=== PATIENT | female | born 1945 | race Caucasian/White ===

== ENCOUNTER 2021-05-23 17:55 | Inpatient (IN) | payer MEDICARE, OTHER ==
[~2021-05-23] VITALS: Ht 167.6 cm; Wt 93.0 kg
[2021-05-23 18:34] LABS: COVID AG,FIA SOURCE NASOPHARYNGEAL
[2021-05-23 18:36] LABS: BASOPHILS % (AUTO) 0.1 % (0.0-2.0); HEMATOCRIT 24.8 % (36-46); HEMOGLOBIN 7.9 g/dL (12.0-16.0); LYMPHOCYTES # (AUTO) 0.7 K/uL (1.0-4.8); LYMPHOCYTES % (AUTO) 4.6 % (22.0-44.0); MEAN CORPUSCULAR HEMOGLOBIN 28.1 pg (26.0-34.0); MEAN CORPUSCULAR HGB CONC 31.9 G/dL (31.0-37.0); MEAN CORPUSCULAR VOLUME 88 fL (80-100); MONOCYTES # (AUTO) 0.7 K/uL (0.1-1.0); MONOCYTES % (AUTO) 4.6 % (2.0-9.0); NEUTROPHILS # (AUTO) 13.9 K/uL (1.8-7.7); PLATELET COUNT (AUTO) 283 K/uL (150-450); RED BLOOD CELL COUNT(AUTO) 2.81 MIL/uL (4.00-5.20); RED CELL DISTRIBUTION WIDTH 15.1 % (11.5-14.5)
[2021-05-23 18:39] LABS: NEUTROPHILS % (AUTO) 89.7 % (40.0-70.0)
[2021-05-23 18:44] LABS: CALCIUM, TOTAL 9.4 mg/dL (8.8-10.5); CREATININE 1.93 mg/dL (0.60-1.30); POTASSIUM 3.9 mmol/L (3.5-5.1)
[2021-05-23 18:49] LABS: ALBUMIN 2.7 g/dL (3.4-5.0); BILIRUBIN,TOTAL 0.9 mg/dL (0.1-1.0); TOTAL PROTEIN, SERUM 6.7 g/dL (6.4-8.2)
[2021-05-23 19:04] LABS: INFLUENZA TYPE A NEGATIVE FOR TYPE A (NEGATIVE); INFLUENZA TYPE B NEGATIVE FOR TYPE B (NEGATIVE)
[2021-05-23] MEDS ORDERED: DEXAMETHASONE SOD PHOS 4 MG/ML VIAL IVP ONE (19:15)
[2021-05-23] MEDS ORDERED: OXYC10TA48 PO (19:25)
[2021-05-23] MEDS ORDERED: CYCL10TA17 PO (19:25)
[2021-05-23] MEDS ORDERED: BISA10SU61 PR (19:27)
[2021-05-23] MEDS ORDERED: FAMO10TA39 PO (19:28)
[2021-05-23] MEDS ORDERED: FLUO20CA36 PO (19:29)
[2021-05-23] MEDS ORDERED: FLUT16H NASAL (19:30)
[2021-05-23] MEDS ORDERED: PIPERACILLIN/TAZO 3.375 GM/D5W 50 ML IV ONE (19:30)
[2021-05-23] MEDS ORDERED: FURO-151 PO (19:31)
[2021-05-23] MEDS ORDERED: GABA-1181 PO (19:32)
[2021-05-23] MEDS ORDERED: HALO.5 PO (19:33)
[2021-05-23] MEDS ORDERED: HEPA500018 SQ (19:34)
[2021-05-23] MEDS ORDERED: IPRA3AMP23 NEB (19:35)
[2021-05-23] MEDS ORDERED: LIDO1ADH48 TP (19:35)
[2021-05-23] MEDS ORDERED: LOSA25TA21 PO (19:36)
[2021-05-23] MEDS ORDERED: MELA5TAB21 PO (19:37)
[2021-05-23] MEDS ORDERED: MOME13HF2 IH (19:39)
[2021-05-23] MEDS ORDERED: NYST15PO3 TP (19:41)
[2021-05-23] MEDS ORDERED: MORPHINE SULFATE 4 MG/ML SYRINGE IVP ONE (19:45)
[2021-05-23] MEDS ORDERED: VANCOMYCIN HCL 1 GM/D5% WATER 200 ML IV ONE (20:00)
[2021-05-23] MEDS ORDERED: ONDANSETRON HCL 4 MG/2 ML VIAL IVP PRN (20:00)
[2021-05-23 20:17] LABS: RETICULOCYTE % (AUTO) 4.6 % (0.5-2.3)
[2021-05-23 20:30] LABS: HEMOGLOBIN A1C 5.1 % (3.8-5.6)
[2021-05-23] MEDS: HALOPERIDOL 1 MG TABLET PO SCH (20:32)
[2021-05-23 20:55] LABS: % IRON SATURATION 6.3 % (22-44)
[2021-05-23] MEDS ORDERED: LORazepam 2 MG/ML VIAL IVP ONE (21:00)
[2021-05-23] MEDS: IPRATROPIUM BROMIDE 0.5 MG/2.5 ML NEB SOLUTION NEB SCH (21:00)
[2021-05-23] MEDS: ALBUTEROL SULFATE 2.5 MG/0.5 ML NEB SOLUTION NEB SCH (21:00)
[2021-05-23] MEDS: CefTRIAXone 1 GM/DEXTROSE 50 ML IV SCH (22:00)
[2021-05-24] VITALS (13 sets, daily range): BP systolic 102–167; BP diastolic 45–87
[2021-05-24] MEDS ORDERED: HEPARIN SODIUM,PORCINE 5,000 UNITS/ML VIAL SQ SCH
[2021-05-24 00:54] LABS: APPEARANCE,URINE CLOUDY (CLEAR); BILIRUBIN,URINE NEGATIVE (NEGATIVE); GLUCOSE, URINE (UA) NEGATIVE (NEGATIVE); KETONES,URINE NEGATIVE (NEGATIVE); LEUKOCYTE ESTERASE ,URINE LARGE (NEGATIVE); NITRATE,URINE POSITIVE (NEGATIVE); OCCULT BLOOD,URINE SMALL (NEGATIVE); PH,URINE 5.5 (5.0-8.0); PROTEIN,URINE TRACE (NEGATIVE); UROBILINOGEN,URINE 0.2 mg/dL (<=1.0)
[2021-05-24 01:39] LABS: SODIUM,URINE RANDOM 7 mmol/l (20-110)
[2021-05-24 01:52] LABS: BACTERIA,URINE Few /HPF (None Seen)
[2021-05-24 01:53] LABS: RBC,URINE 0-2 /HPF (0-2); SQUAMOUS EPITHELIAL CELL,UR Rare /LPF (None Seen)
[2021-05-24] MEDS: ACETAMINOPHEN 325 MG TABLET PO PRN ×2 (03:04→18:57)
[2021-05-24 05:03] LABS: BASOPHILS % (AUTO) 0.4 % (0.0-2.0); EOSINOPHILS % (AUTO) 0.1 % (1.0-6.0); LYMPHOCYTES # (AUTO) 0.5 K/uL (1.0-4.8); LYMPHOCYTES % (AUTO) 2.8 % (22.0-44.0); MEAN CORPUSCULAR HEMOGLOBIN 28.4 pg (26.0-34.0); MEAN CORPUSCULAR HGB CONC 31.9 G/dL (31.0-37.0); MEAN CORPUSCULAR VOLUME 89 fL (80-100); MONOCYTES # (AUTO) 0.6 K/uL (0.1-1.0); MONOCYTES % (AUTO) 3.3 % (2.0-9.0); NEUTROPHILS # (AUTO) 15.4 K/uL (1.8-7.7); RED BLOOD CELL COUNT(AUTO) 2.36 MIL/uL (4.00-5.20); RED CELL DISTRIBUTION WIDTH 15.3 % (11.5-14.5)
[2021-05-24 05:05] LABS: CREATININE 1.86 mg/dL (0.60-1.30); HEMOGLOBIN 6.7 g/dL (12.0-16.0); MAGNESIUM 2.9 mg/dL (1.80-2.40); NEUTROPHILS % (AUTO) 93.4 % (40.0-70.0); POTASSIUM 4.7 mmol/L (3.5-5.1)
[2021-05-24] MEDS ORDERED: PANTOPRAZOLE SODIUM 40 MG/VIAL IVP ONE (05:15)
[2021-05-24 05:27] LABS: PLATELET COUNT (AUTO) 207 K/uL (150-450)
[2021-05-24] MEDS: HALOPERIDOL 1 MG TABLET PO SCH ×3 (08:50→22:29)
[2021-05-24] MEDS: ALBUTEROL SULFATE 2.5 MG/0.5 ML NEB SOLUTION NEB SCH ×4 (09:18→20:48)
[2021-05-24] MEDS: IPRATROPIUM BROMIDE 0.5 MG/2.5 ML NEB SOLUTION NEB SCH ×4 (09:18→20:48)
[2021-05-24] MEDS ORDERED: FAMO20 PO (11:00)
[2021-05-24 11:52] LABS: C-REACTIVE PROTEIN QUANT 23.94 mg/dL (0.00-0.30)
[2021-05-24] MEDS: FLUTICASONE PROPIONATE 50 MCG/SPRAY 16 GM NASAL SPRAY NASAL SCH ×2 (12:49→22:28)
[2021-05-24] MEDS: NYSTATIN 15 GM POWDER BOTTLE TP SCH (12:50)
[2021-05-24] MEDS: GABAPENTIN 300 MG CAPSULE PO SCH (12:50)
[2021-05-24] MEDS: FLUoxetine HCL 20 MG CAPSULE PO SCH (12:51)
[2021-05-24] MEDS: PANTOPRAZOLE SODIUM 40 MG DR TABLET PO SCH ×3 (12:51→22:29)
[2021-05-24] MEDS ORDERED: INSULIN LISPRO 100 UNITS/ML SQ PRN (14:00)
[2021-05-24] MEDS ORDERED: DEXTROSE 50%-WATER 25 GM/50 ML SYRINGE IVP PRN (14:00)
[2021-05-24] MEDS ORDERED: REMDESIVIR 200 MG in SODIUM CHLORIDE 0.9% 250 ML IV ONE (14:00)
[2021-05-24] MEDS ORDERED: SODIUM CHLORIDE 0.9% 250 ML IV ONE (15:14)
[2021-05-24] MEDS: DEXAMETHASONE SOD PHOS 4 MG/ML VIAL IVP SCH (15:23)
[2021-05-24] MEDS ORDERED: MOMETASONE IH SCH (21:00)
[2021-05-24] MEDS ORDERED: FORMOTEROL IH SCH (21:00)
[2021-05-25] MEDS: CefTRIAXone 1 GM/DEXTROSE 50 ML IV SCH ×2 (00:04→23:53)
[2021-05-25 00:18] VITALS: BP 139/70
[2021-05-25 00:24] LABS: GLUCOMETER DEV NAME(LOC) 5S.2B; GLUCOSE,POINT OF CARE 131 MG/DL (70-110)
[2021-05-25 00:36] LABS: GLUCOMETER DEV NAME(LOC) 5S.1; GLUCOSE,POINT OF CARE 120 MG/DL (70-110)
[2021-05-25] MEDS: MELATONIN 5 MG TABLET PO PRN ×2 (00:54→21:04)
[2021-05-25] MEDS ORDERED: ALBUTEROL SULFATE 2.5 MG/0.5 ML NEB SOLUTION NEB ONE (01:00)
[2021-05-25] MEDS ORDERED: IPRATROPIUM BROMIDE 0.5 MG/2.5 ML NEB SOLUTION NEB ONE (01:00)
[2021-05-25] MEDS: ACETAMINOPHEN 325 MG TABLET PO PRN ×2 (03:25→14:35)
[2021-05-25] MEDS ORDERED: MORPHINE SULFATE 2 MG/ML SYRINGE IVP ONE (04:00)
[2021-05-25 04:09] VITALS: BP 165/74
[2021-05-25 06:32] LABS: EOSINOPHILS % (AUTO) 0 % (1.0-6.0); HEMATOCRIT 25.8 % (36-46); HEMOGLOBIN 8.3 g/dL (12.0-16.0); LYMPHOCYTES # (AUTO) 0.3 K/uL (1.0-4.8); LYMPHOCYTES % (AUTO) 1.9 % (22.0-44.0); MEAN CORPUSCULAR HEMOGLOBIN 28.8 pg (26.0-34.0); MEAN CORPUSCULAR HGB CONC 32.3 G/dL (31.0-37.0); MEAN CORPUSCULAR VOLUME 89 fL (80-100); MONOCYTES # (AUTO) 0.6 K/uL (0.1-1.0); MONOCYTES % (AUTO) 3.9 % (2.0-9.0); NEUTROPHILS # (AUTO) 15.1 K/uL (1.8-7.7); PLATELET COUNT (AUTO) 270 K/uL (150-450); RED CELL DISTRIBUTION WIDTH 15.3 % (11.5-14.5)
[2021-05-25 06:33] LABS: GLUCOMETER DEV NAME(LOC) 5N.3; GLUCOSE,POINT OF CARE 109 MG/DL (70-110)
[2021-05-25 06:58] LABS: NEUTROPHILS % (AUTO) 94.2 % (40.0-70.0)
[2021-05-25] MEDS ORDERED: LORazepam 2 MG/ML VIAL IVP ONE (07:00)
[2021-05-25 07:05] LABS: ALBUMIN 2.5 g/dL (3.4-5.0); BILIRUBIN,TOTAL 0.3 mg/dL (0.1-1.0); CALCIUM, TOTAL 9.2 mg/dL (8.8-10.5); CREATININE 1.74 mg/dL (0.60-1.30); TOTAL PROTEIN, SERUM 6.7 g/dL (6.4-8.2)
[2021-05-25] MEDS: IPRATROPIUM BROMIDE 0.5 MG/2.5 ML NEB SOLUTION NEB SCH ×4 (07:31→22:44)
[2021-05-25] MEDS: ALBUTEROL SULFATE 2.5 MG/0.5 ML NEB SOLUTION NEB SCH ×4 (07:31→22:44)
[2021-05-25 08:12] VITALS: BP 161/74
[2021-05-25] MEDS: HALOPERIDOL 1 MG TABLET PO SCH ×2 (08:31→21:04)
[2021-05-25] MEDS: DEXAMETHASONE SOD PHOS 4 MG/ML VIAL IVP SCH (08:31)
[2021-05-25] MEDS: PANTOPRAZOLE SODIUM 40 MG DR TABLET PO SCH ×2 (08:32→21:00)
[2021-05-25] MEDS: FLUoxetine HCL 20 MG CAPSULE PO SCH (08:32)
[2021-05-25] MEDS: GABAPENTIN 300 MG CAPSULE PO SCH (08:32)
[2021-05-25] MEDS: LIDOCAINE 5% TRANSDERMAL PATCH TD SCH (08:33)
[2021-05-25] MEDS: NYSTATIN 15 GM POWDER BOTTLE TP SCH (08:34)
[2021-05-25] MEDS: FLUTICASONE PROPIONATE 50 MCG/SPRAY 16 GM NASAL SPRAY NASAL SCH ×2 (08:35→21:04)
[2021-05-25] MEDS ORDERED: FUROSEMIDE 40 MG/4 ML VIAL IVP ONE (10:45)
[2021-05-25 11:27] LABS: ABG A-A DIFF O2 372.6 mmHg (10-20.0); ABG BASE EXCESS -2.6 mmol/L (-2.0-3.0); ABG CARBOXYHEMOGLOBIN 0.3 % (0.0-1.5); ABG HCO3 22.4 mmol/L (22.0-26.0); ABG METHEMOGLOBIN 0.3 % (0.0-1.5); ABG OXYGEN CONTENT 13.2 mL/dL (15.0-23.0); ABG OXYGEN SATURATION 95.7 % (95.0-98.0); ABG OXYHEMOGLOBIN 95.1 % (94.0-100.0); ABG PCO2 42 mmHg (35-45); ABG PH 7.358 (7.35-7.450); ABG TOTAL HEMOGLOBIN 9.8 G/dL (12.0-18.0); O2 DEVICE,BLOOD GAS BIPAP (ROOM AIR); PO2, ARTERIAL BG 81.7 mmHg (75.0-83.0); SITE, BLOOD GAS LFT RADIAL; SOURCE, BLOOD GAS ARTERIAL; SPONTANEOUS VT, BG 450 ml; TEMPERATURE, FAHRENHEIT, BG 98.6 FAHREN (96.0-98.6)
[2021-05-25] MEDS: DOXYCYCLINE HYCLATE 100 MG in DEXTROSE 5%-WATER 100 ML IV SCH (12:02)
[2021-05-25 12:15] VITALS: BP 150/61
[2021-05-25] MEDS ORDERED: REMDESIVIR 100 MG in SODIUM CHLORIDE 0.9% 250 ML IV SCH (16:00)
[2021-05-25 16:30] VITALS: BP 132/66
[2021-05-25] MEDS: MORPHINE SULFATE 2 MG/ML SYRINGE IVP PRN ×2 (20:30→23:53)
[2021-05-25 20:33] VITALS: BP 170/75
[2021-05-25] MEDS ORDERED: -LIDODERM PATCH NOTE- MISC SCH (21:00)
[2021-05-25 21:50] LABS: GLUCOMETER DEV NAME(LOC) 5N.3; GLUCOSE,POINT OF CARE 115 MG/DL (70-110)
[2021-05-25 22:07] LABS: GLUCOMETER DEV NAME(LOC) 5S.2B; GLUCOSE,POINT OF CARE 135 MG/DL (70-110)
[2021-05-25 22:07] LABS: GLUCOMETER DEV NAME(LOC) 5S.2B; GLUCOSE,POINT OF CARE 121 MG/DL (70-110)
[2021-05-25] MEDS ORDERED: MELATONIN 5 MG TABLET PO ONE (23:45)
[2021-05-26] MEDS: DOXYCYCLINE HYCLATE 100 MG in DEXTROSE 5%-WATER 100 ML IV SCH ×2 (00:22→11:07)
[2021-05-26 00:32] VITALS: BP 156/81
[2021-05-26] MEDS: ACETAMINOPHEN 325 MG TABLET PO PRN (01:26)
[2021-05-26] MEDS: MORPHINE SULFATE 2 MG/ML SYRINGE IVP PRN ×2 (03:37→08:03)
[2021-05-26 03:44] VITALS: BP 142/71
[2021-05-26] MEDS ORDERED: LORazepam 2 MG/ML VIAL IVP PRN ×2 (08:00→11:45)
[2021-05-26 08:03] VITALS: BP 154/97
[2021-05-26] MEDS: IPRATROPIUM BROMIDE 0.5 MG/2.5 ML NEB SOLUTION NEB SCH ×4 (08:28→20:22)
[2021-05-26] MEDS: ALBUTEROL SULFATE 2.5 MG/0.5 ML NEB SOLUTION NEB SCH ×4 (08:28→20:22)
[2021-05-26] MEDS: DEXAMETHASONE SOD PHOS 4 MG/ML VIAL IVP SCH (09:38)
[2021-05-26] MEDS: FLUoxetine HCL 20 MG CAPSULE PO SCH (09:38)
[2021-05-26] MEDS: PANTOPRAZOLE SODIUM 40 MG DR TABLET PO SCH (09:38)
[2021-05-26] MEDS: LIDOCAINE 5% TRANSDERMAL PATCH TD SCH (09:39)
[2021-05-26] MEDS: HALOPERIDOL 1 MG TABLET PO SCH (09:39)
[2021-05-26] MEDS: GABAPENTIN 300 MG CAPSULE PO SCH (09:39)
[2021-05-26] MEDS ORDERED: MORPHINE SULFATE 100 MG/NS/PF 100 ML IV PRN (11:45)
[2021-05-26] MEDS ORDERED: MORPHINE SULFATE 2 MG/ML SYRINGE IVP PRN (12:30)
[2021-05-27 00:15] VITALS: BP 80/49
[2021-05-27 14:21] LABS: GLUCOMETER DEV NAME(LOC) 5N.3; GLUCOSE,POINT OF CARE 96 MG/DL (70-110)
== END 2021-05-27 05:30 | DRG 871 ==
LOC: EMS 17:58 → 5N 05-24 05:38 → 5S 05-26 17:32
PROVIDERS: ADMIT Internal Medicine; ATTEND Internal Medicine
PROC: XW033E5 Introduction of Remdesivir Anti-infective into Peripheral Vein, Percutaneous Approach, New Technology Group 5 (ICD-10-PCS; principal; 2021-05-24)
PROC: 5A0935A Assistance with Respiratory Ventilation, Less than 24 Consecutive Hours, High Flow/Velocity Cannula (ICD-10-PCS; 2021-05-24)
PROC: 30233N1 Transfusion of Nonautologous Red Blood Cells into Peripheral Vein, Percutaneous Approach (ICD-10-PCS; 2021-05-24)
PROC: 5A09357 Assistance with Respiratory Ventilation, Less than 24 Consecutive Hours, Continuous Positive Airway Pressure (ICD-10-PCS; 2021-05-25)
PROC: 5A0935A Assistance with Respiratory Ventilation, Less than 24 Consecutive Hours, High Flow/Velocity Cannula (ICD-10-PCS; 2021-05-25)
PROC: 5A09357 Assistance with Respiratory Ventilation, Less than 24 Consecutive Hours, Continuous Positive Airway Pressure (ICD-10-PCS; 2021-05-26)
DX: A41.9 Sepsis, unspecified organism (principal); J96.21 Acute and chronic respiratory failure with hypoxia; J18.9 Pneumonia, unspecified organism; I13.0 Hypertensive heart and chronic kidney disease with heart failure and stage 1 through stage 4 chronic kidney disease, or unspecified chronic kidney disease; N18.4 Chronic kidney disease, stage 4 (severe); I50.9 Heart failure, unspecified; Z20.822 Contact with and (suspected) exposure to COVID-19; Z66 Do not resuscitate; D63.8 Anemia in other chronic diseases classified elsewhere; J98.4 Other disorders of lung; E66.9 Obesity, unspecified; J84.10 Pulmonary fibrosis, unspecified; Z68.33 Body mass index [BMI] 33.0-33.9, adult; Z79.899 Other long term (current) drug therapy; Z51.5 Encounter for palliative care
CPT/HCPCS: 71045; 71250; 80048; 80053; 81001; 82271; 82570; 82728; 82805; 82962; 83036; 83540; 83550; 83605; 83690; 83735; 83880; 84300; 84484; 85025; 85045; 85379; 86140; 86850; 86900; 86901; 86923; 87040; 87077; 87081; 87086; 87186; 87449; 87804; 93005; 93306; 93970; 94640; 94660; 99291; C9113; J0696; J1100; J1644; J1940; J2060; J2270; J2543; J3370; J3490; J7050; J7060; P9016; Q9967; 36415-L1; 36415-TC; J7613; U0003